=== PATIENT | female | born 1975 | race African-American/Black ===

== ENCOUNTER 2016-04-23 17:57 | Emergency (ER) | payer OTHER ==
[~2016-04-23] VITALS: Ht 172.7 cm; Wt 74.8 kg
[2016-04-23 18:22] VITALS: BP 166/93
[2016-04-23] MEDS ORDERED: PROAIR HFA8.5 GM INH (18:51)
[2016-04-23] MEDS ORDERED: AMOX1TAB10 PO (18:51)
[2016-04-23] MEDS ORDERED: PRED20TA PO (18:51)
--- NOTE | 2016-04-23 18:52 | PHYS DOC ---
Past Medical History Past Medical History: No Pertinent History Past Surgical History: Cholecystectomy, Tubal ligation Additional Past Surgical Histo: Hernia Repair Smoking: Less than 1pk/day Alcohol Use: Occasionally Drug Use: None Adult General Chief Complaint Chief Complaint: Congestion HPI HPI Patient is a 40 year old female who presents with sinus congestion for 3 weeks. She has had nasal congestion, sore throat, and bilateral ear pain with productive cough and low-grade fevers. She denies shortness of breath, nausea, vomiting, or diarrhea. She initially thought that her symptoms were due to allergies until she began to have the low-grade fevers. She has not yet been seen for her symptoms. She does not have a PCP. Review of Systems Review of Systems Constitutional: Reports low-grade fever. Eyes: Denies change in visual acuity, redness, or eye pain. [] HENT: Reports sinus pressure, nasal congestion, sore throat, and bilateral ear pain. Respiratory: Denies shortness of breath. Reports productive cough. Cardiovascular: Denies chest pain, palpitations or edema. [] GI: Denies abdominal pain, nausea, vomiting, bloody stools or diarrhea. [] Musculoskeletal: Denies back pain or joint pain. [] Integument: Denies rash or skin lesions. [] Neurologic: Denies headache, focal weakness or sensory changes. [] All systems reviewed and negative unless otherwise stated in the HPI. Allergies Allergies Allergies Coded Allergies Type Severity Reaction Last Updated Verified codeine Allergy Intermediate "I see things" 08/07/14 No Physical Exam Physical Exam Constitutional: Well developed, well nourished, no acute distress, non-toxic appearance. [] HENT: Normocephalic, atraumatic, bilateral external ears normal, oropharynx moist, no oral exudates, nose normal. Bilateral TMs without erythema or bulging. There is no posterior pharyngeal erythema or tonsillar edema. Bilateral nasal turbinates are swollen and erythematous. Bilateral maxillary sinuses are tender to palpation, left more than right. Eyes: PERRLA, EOMI, conjunctiva normal, no discharge. [] Neck: Normal range of motion, no tenderness, supple, no stridor. [] Cardiovascular: Heart rate regular rhythm, no murmur [] Lungs & Thorax: There are mild wheezes throughout all lung roland without rales or rhonchi. The patient is not in any respiratory distress. Skin: Warm, dry, no erythema, no rash. [] Neurologic: Alert and oriented X 3, normal motor function, normal sensory function, no focal deficits noted. [] Psychologic: Affect normal, judgement normal, mood normal. [] Current Patient Data Vital Signs Vital Signs Date Time Temp Pulse Resp B/P Pulse Ox O2 Delivery O2 Flow Rate FiO2 04/23/16 18:22 98.1 72 18 100 Room Air 98.1 EKG EKG [] Radiology/Procedures Radiology/Procedures [] Course & Med Decision Making Course & Med Decision Making Pertinent Labs and Imaging studies reviewed. (See chart for details) [] Dragon Disclaimer Dragon Disclaimer This electronic medical record was generated, in whole or in part, using a voice recognition dictation system. Departure Departure Impression: Primary Impression: Sinusitis Additional Impression: Bronchitis Disposition: HOME, SELF-CARE Condition: STABLE Referrals: NO PCP (PCP) Patient Instructions: Acute Bronchitis, [id number], Sinusitis, [id number] Additional Instructions: Please complete all of the prescribed steroids and antibiotic pills, even if you are feeling better. Please use the prescribed inhaler as needed for cough or shortness of breath. Do not use more often than directed. Please follow up with a primary care provider if your symptoms continue. Return to the emergency department if you have any new or concerning symptoms. Scripts Amoxicillin/Potassium Clav (Amox Tr-K Clv 500-125 Mg Tab)1 Each Tablet1 Tab PO BID #14 TAB Prov:BERNARDO DAY 04/23/16 Prednisone 20 Mg [id number] Mg PO DAILY 5 Days Prov:BERNARDO DAY 04/23/16 Albuterol Sulfate (Proair Hfa Inhaler)8.5 Gm [id number].[id number] Puff INH Q4HRS PRN SHORTNESS OF BREATH #1 INHALER Prov:BERNARDO DAY 04/23/16 Problem Qualifiers Primary Impression: Sinusitis Sinusitis location: maxillary Chronicity: acute Recurrence: non-recurrent Qualified Code: J01.00 - Acute maxillary sinusitis, unspecified BERNARDO DAY Apr 23, 2016 18:52
== END 2016-04-23 18:58 | disposition home or self-care (01) ==
LOC: ER 17:57
DX: J01.00 Acute maxillary sinusitis, unspecified (principal); J40 Bronchitis, not specified as acute or chronic; F17.210 Nicotine dependence, cigarettes, uncomplicated; Z88.5 Allergy status to narcotic agent
CPT/HCPCS: 99283

== ENCOUNTER 2016-05-21 | Emergency (ER) | payer OTHER ==
[~2016-05-21] VITALS: Ht 170.2 cm; Wt 81.6 kg
[~2016-05-21] MED LIST: AMOX1TAB10 PO; PRED20TA PO; PROAIR HFA8.5 GM INH
[2016-05-21] MEDS ORDERED: AMOX1TAB61 PO (00:30)
[2016-05-21] MEDS ORDERED: MORPHINE SULFATE 4 MG/ML DISP.SYRIN. IM ONE (00:30)
--- NOTE | 2016-05-21 00:32 | PHYS DOC ---
Past Medical History Past Medical History: No Pertinent History Past Surgical History: Cholecystectomy, Tubal ligation Additional Past Surgical Histo: Hernia Repair Alcohol Use: Occasionally Drug Use: None Adult General Chief Complaint Chief Complaint: EARACHE/EAR PAIN [facility] HPI Patient is a 40 year old female presents emergency department stating that she had a sinus infection about a week and half ago. She states she was on amoxicillin at that time. Patient states she has completed the antibiotic treatment. Patient states that she is having increased left ear pain and discomfort with no drainage or discharge. She states that she is having sinus pain along the frontal sinus. Patient is in extreme pain and crying at the current time. Patient denies fever, chills or any nausea or vomiting. She states she is allergic to codeine. Patient does state that she did have tubes in bilateral ears as a child. She denies any trauma or injury to her ear. Review of Systems Review of Systems Constitutional: Denies fever or chills [] Eyes: Denies change in visual acuity, redness, or eye pain [] HENT: Denies nasal congestion or sore throat. C/o maxillary sinus tenderness and left ear pain Respiratory: Denies cough or shortness of breath [] Cardiovascular: No additional information not addressed in HPI [] GI: Denies abdominal pain, nausea, vomiting, bloody stools or diarrhea [] : Denies dysuria or hematuria [] Musculoskeletal: Denies back pain or joint pain [] Integument: Denies rash or skin lesions [] Neurologic: Denies headache, focal weakness or sensory changes [] Current Medications Current Medications Current Medications Medications (Trade) Dose Ordered Sig/[facility] Start Time Stop Time Status Last Admin Dose Admin Morphine Sulfate 4 mg 1X ONCE 05/21/16 00:30 05/21/16 00:31 DC 05/21/16 00:42 4 MG Allergies Allergies Allergies Coded Allergies Type Severity Reaction Last Updated Verified codeine Allergy Intermediate "I see things" 08/07/14 No Physical Exam Physical Exam Constitutional: Well developed, well nourished, no acute distress, non-toxic appearance. [] HENT: Normocephalic, atraumatic, bilateral external ears normal, oropharynx moist, no oral exudates, nose normal. Right tympanic membrane is normal, left tympanic membrane appears to been ruptured. No drainage or discharge noted from the site. Patient was noted to have left maxillary sinus tenderness no frontal sinus tenderness noted. Patient with throat that appears to be with erythematous no exudate noted. Uvula with no deviation. Eyes: PERRLA, EOMI, conjunctiva normal, no discharge. [] Neck: Normal range of motion, no tenderness, supple, no stridor. [] Cardiovascular:Heart rate regular rhythm, no murmur [] Lungs & Thorax: Bilateral breath sounds clear to auscultation [] Skin: Warm, dry, no erythema, no rash. [] Back: No tenderness Extremities: No tenderness, no cyanosis, no clubbing, ROM intact, no edema. [] Neurologic: Alert and oriented X 3, normal motor function, normal sensory function, no focal deficits noted. [] Psychologic: Affect normal, judgement normal, mood normal. [] Current Patient Data Vital Signs Vital Signs Date Time Temp Pulse Resp B/P Pulse Ox O2 Delivery O2 Flow Rate FiO2 05/21/16 01:10 188/97 05/21/16 00:42 18 Room Air 05/21/16 00:09 97.7 80 99 97.7 EKG EKG [] Radiology/Procedures Radiology/Procedures [] Course & Med Decision Making Course & Med Decision Making Pertinent Labs and Imaging studies reviewed. (See chart for details) Patient was noted to have an elevation in blood pressure. Patient denies any past medical problems with hypertension. She is not on any medications for hypertension. Patient will be provided with morphine here in the emergency department and monitored with her blood pressure. She denies any headaches, she denies any shortness of air or chest discomfort. She'll blood pressure had decreased. Patient was recommended to continue to monitor her blood pressure follow-up with her primary care physician. She'll be discharged home with recommendations for Sudafed and Mucinex. Also recommended Tylenol and ibuprofen for pain and discomfort. Patient will be placed on Augmentin. Signs and symptoms to return back to emergency department as been provided. [] Dragon Disclaimer Dragon Disclaimer This electronic medical record was generated, in whole or in part, using a voice recognition dictation system. Departure Departure Impression: Primary Impression: Sinusitis Additional Impression: Rupture of left tympanic membrane Disposition: HOME, SELF-CARE Condition: STABLE Referrals: NO PCP (PCP) Patient Instructions: Eardrum Perforation, Sinusitis, [id number] Additional Instructions: Home to rest. Medication as prescribed. Sudafed may also help relieve some of the pressure in her sinus areas. Mucinex DM will also help. Drink plenty of fluids. Keep your left area clean and dry. Whenever you're taking a shower you'll need to place a cotton ball to keep the ear canal dry. Monitor your blood pressure at home and followup with primary care provider Tylenol and ibuprofen for fever chills or generalized body aches and discomfort. Follow-up to primary care physician next 3-5 days. Return back to emergency percent symptoms become worse. Scripts Amoxicillin/Potassium Clav (Augmentin 875-125 Tablet)1 Each Tablet1 Tab PO BID # 20 TAB Prov:ALEXEY RAMIREZ NP 05/21/16 Problem Qualifiers ALEXEY RAMIREZ NP May 21, 2016 00:32
[2016-05-21 01:10] VITALS: BP 188/97
== END 2016-05-21 01:26 | disposition home or self-care (01) ==
LOC: ER
DX: J32.9 Chronic sinusitis, unspecified (principal); H72.92 Unspecified perforation of tympanic membrane, left ear; Z88.5 Allergy status to narcotic agent; Z96.22 Myringotomy tube(s) status
CPT/HCPCS: 96372; 99283; J2270